=== PATIENT | female | born 1980 | race Caucasian/White ===

== ENCOUNTER → 2023-11-28 10:31 | Outpatient (REF) | payer BC, SELFPAY | LOC: HWWDC 10:31 | PROVIDERS: ATTENDING PHYSICIAN Obstetrics & Gynecology; FAMILY PHYSICIAN Internal Medicine | DX: Z12.31 Encounter for screening mammogram for malignant neoplasm of breast (principal) | CPT/HCPCS: 77063; 77067 ==

== ENCOUNTER → 2024-08-25 09:13 | Outpatient (REF) | payer BC, SELFPAY | LOC: HWRAD 09:13 | PROVIDERS: ATTENDING PHYSICIAN Internal Medicine | DX: R10.11 Right upper quadrant pain (principal) | CPT/HCPCS: 76700 ==

== ENCOUNTER → 2024-08-28 13:01 | Outpatient (REF) | payer BC, SELFPAY | LOC: MRI 3T 13:01 | PROVIDERS: ATTENDING PHYSICIAN Internal Medicine | DX: K76.9 Liver disease, unspecified (principal) | CPT/HCPCS: 74183; A9575 ==

== ENCOUNTER 2024-10-13 06:24 | Day surgery (SDC) | payer BC, SELFPAY | END 2024-10-13 13:23 | disposition home or self-care (01) | LOC: GI 06:24 | PROVIDERS: ATTENDING PHYSICIAN Internal Medicine Gastroenterology | DX: Z12.11 Encounter for screening for malignant neoplasm of colon (principal); K63.5 Polyp of colon; K62.1 Rectal polyp | CPT/HCPCS: 45385; 88305 ==

== ENCOUNTER 2024-11-17 06:12 | Day surgery (SDC) | payer BC, SELFPAY ==
[2024-10-23 08:52] LABS: % Basophils 0.8 % (0-2); % Eosinophils 2.1 % (0-6); % Immature Granulocytes 0.5 % (0-0.5); % Lymphocytes 31.1 % (20.5-51.1); % Monocytes 7.3 % (1.7-9.3); % Neutrophils 58.2 % (42.2-75.2); Absolute Basophils 0.1 10^3/uL (0-0.2); Absolute Eosinophils 0.1 10^3/uL (0-0.7); Absolute Monocytes 0.5 10^3/uL (0.1-0.6); Absolute Neutrophils 3.7 10^3/uL (1.4-6.5); Hematocrit 41.3 % (37.0-47.0); Hemoglobin 13.8 g/dL (12.0-16.0); Mean Corp Hgb Conc. 33.4 g/dL (33.0-37.0); Mean Corpuscular Hgb 28.3 pg (27.0-31.0); Mean Corpuscular Volume 84.6 fL (81.0-99.0); Mean Platelet Volume 11.1 fL (7.4-10.4); Nucleated Red Blood Cells % 0 %; Platelet Count 202 10^3/uL (130-400); Red Blood Cell Count 4.88 10^6/uL (4.20-5.40); White Blood Cell Count 6.3 10^3/uL (4.8-10.8)
[2024-10-23 09:20] LABS: Blood Urea Nitrogen 16 mg/dl (7-17); Calcium 9.5 mg/dl (8.4-10.2); Carbon Dioxide 24 mmol/L (22-30); Chloride 105 mmol/L (98-107); Glucose 87 mg/dl (70-99); Potassium 4.3 mmol/L (3.5-5.1); Sodium 138 mmol/L (135-145); eGFR > 60.00
[2024-10-23 09:23] LABS: Beta HCG Quantitative < 2.39 mIU/ml
[2024-10-23 14:01] VITALS: BMI 23.6
[2024-11-17] VITALS (9 sets, daily range): BP systolic 96–114; BP diastolic 60–72; BMI 23.6
[2024-11-17] MEDS: NEURONTIN 300 MG PO (06:56)
[2024-11-17] MEDS: TYLENOL 1000 MG PO (06:56)
[2024-11-17] MEDS: NORMOSOL-R/PLASMALYTE-A 1000 IV (07:09)
--- NOTE | 2024-11-17 08:30 | W.IMMPOSTOP ---
Surgical Immed Post Op Note
-
Primary Surgeon: Ann Jacobo DO
[employer] Automation Engineer: CHRISTOPHER Beltran
Pre-op Diagnosis: Multiparity, request for sterilization
Post-op Diagnosis: same
Procedure Performed: Laparoscopic bilateral salpingectomy
Anesthesia Type: general Dr. Thomas
Specimen / Cultures: bilateral fallopian tubes
Estimated Blood Loss: 2mL
Complications: none
Operative Findings: Uterus normal size with adhesions along anterior surface of uterus to anterior abdominal wall.
Left ovary with simple ovulatory cyst approx 2 cm. Normal appearing tubes and right ovary.
Counts correct times 2.
Stable to recovery.
== END 2024-11-17 10:33 | disposition home or self-care (01) ==
LOC: SDS 06:12
PROVIDERS: ATTENDING PHYSICIAN Obstetrics & Gynecology; FAMILY PHYSICIAN Internal Medicine
DX: Z30.2 Encounter for sterilization (principal)
CPT/HCPCS: 58661; 88302; 36415; 80048; 84702; 85025; 86850; 86900; 86901; C1776

== ENCOUNTER → 2024-11-30 07:48 | Outpatient (REF) | payer BC, SELFPAY | LOC: HWWDC 07:48 | PROVIDERS: ATTENDING PHYSICIAN Obstetrics & Gynecology; FAMILY PHYSICIAN Internal Medicine | DX: Z12.31 Encounter for screening mammogram for malignant neoplasm of breast (principal) | CPT/HCPCS: 77063; 77067 ==

== ENCOUNTER → 2025-05-13 07:34 | Outpatient (REF) | payer BC, SELFPAY | LOC: WDC 07:34 | PROVIDERS: ATTENDING PHYSICIAN Obstetrics & Gynecology; FAMILY PHYSICIAN Internal Medicine | DX: R92.333 Mammographic heterogeneous density, bilateral breasts (principal) | CPT/HCPCS: 76641 ==